=== PATIENT | male | born 1980 | race Hispanic/Latino ===

== ENCOUNTER 2021-12-05 11:10 | Inpatient (IN) | payer MEDICAID, SELFPAY ==
--- NOTE | ~2021-12-05 | US_ITS ---
EXAMINATION: US abdomen limited DATE: 12/05/2021 16:26 INDICATION: Abdominal pain. TECHNIQUE: Multiple grayscale and Doppler ultrasound images of the abdomen were obtained. COMPARISON: CT abdomen and pelvis 12/05/2021 FINDINGS: The pancreas is obscured by bowel gas. The liver is normal without focal lesion. The gallbl adder is distended and contains sludge. No gallstones or gallbladder wall thickening. There was no so nographic Pearl sign. The common duct is normal and measures 5 mm. IMPRESSION: 1. Gallbladder sludge. Gallbladder distention is likely secondary to fasting. No specific evidence of acute cholecystitis. Reviewed, dictated and finalized at location A. IMPRESSION: 1. Gallbladder sludge. Gallbladder distention is likely secondary to fasting. N o specific evidence of acute cholecystitis.
--- NOTE | ~2021-12-05 | CT_ITS ---
EXAMINATION: CT abdomen pelvis w con DATE: 12/05/2021 13:41 INDICATION: Abdominal pain. TECHNIQUE: Computed tomography (CT) of the abdomen and pelvis was performed with 100 mL Omnipaque 350 intravenous contrast. Automated exposure control and iterative reconstruction technique were employe d. The dose-length product was 351.40 mGy-cm. COMPARISON: None. FINDINGS: The visualized portions of the lung bases demonstrate mild atelectasis. No pleural effusion . The heart size is normal. No pericardial effusion. The liver is normal. The gallbladder is distende d. The spleen is normal. There is fat stranding around the pancreas. The pancreatic duct is mildly di lated to 3 mm in the tail of the pancreas. The adrenal glands are normal. There is a 5 mm cyst in rig ht kidney. Left kidney is normal. The prostate is mildly enlarged. There are no dilated loops of fabián l. The appendix is normal. There are no pathologically enlarged lymph nodes. There is no free intrape ritoneal fluid. There is mild thoracolumbar spondylosis. IMPRESSION: 1. Abnormal pancreas, consistent with acute and/or chronic pancreatitis. 2. Distended gallbladder, which may be secondary to fasting or less likely acute cholecystitis. Reviewed, dictated and finalized at location A. IMPRESSION: 1. Abnormal pancreas, consistent with acute and/or chronic pancreatitis. 2. Distended gallbladder, which may be secondary to fasting or less likely acut e cholecystitis.
[2021-12-05 11:42] VITALS: BP 160/114; PULSE 110; RESP 18; TEMP 36.7; O2SAT 98
[2021-12-05 12:13] LABS: Basophils Percent Auto 0.3 % (0.2-1.2); Eosinophils Percent Auto 0.1 % (0-4.4); Hematocrit 44.6 % (42.0-52.0); Hemoglobin 15.6 g/dL (14.0-18.0); Immature Granulocyte Absolute 0.05 K/mm3 (0.00-0.031); Immature Granulocyte Percent A 0.4 % (0-0.5); Lymphocytes Absolute Auto 2.03 K/mm3 (0.9-3.2); Lymphocytes Percent Auto 14.9 % (18.3-44.2); Mean Corpuscular Hemoglobin 29.8 pg (26-34); Mean Corpuscular Volume 85.1 fl (80-100); Mean Platelet Volume 8.8 fl (7.4-10.4); Monocytes Percent Auto 7.5 % (2.6-8.5); Neutrophils Absolute Auto 10.5 K/mm3 (1.3-6.7); Neutrophils Percent Auto 76.8 % (45.5-73.1); Platelet Count Result 429 k/mm3 (150-375); Red Blood Count 5.24 M/mm3 (4.6-6.20); Red Cell Distribution Width 12.4 % (11.5-14.5); White Blood Count 13.6 K/mm3 (4.5-10.0)
[2021-12-05 12:26] LABS: Alanine Aminotransferase 40 U/L (6-50); Albumin Level 4.9 g/dL (3.5-5.1); Alkaline Phosphatase 165 U/L (38-126); Anion Gap 9 mmol/L (8-16); Aspartate Amino Transferase 33 U/L (17-59); Bilirubin,Total 1.6 mg/dL (0.2-1.3); Blood Urea Nitrogen 8 mg/dL (9-20); Calcium 9.3 mg/dL (8.4-10.2); Carbon Dioxide 25 mmol/L (22-30); Chloride 92 mmol/L (98-107); Estimated CRCL calculation 96 ml/min; Estimated Glomerular Filt Rate > 60; Glucose 129 mg/dL (65-110); Lipase 226 U/L (23-300); Potassium 3.4 mmol/L (3.4-5.0); Sodium 126 mmol/L (137-145)
[2021-12-05 12:34] LABS: Appearance Urine Slightly Cloudy (Clear); Bilirubin Urine Negative (Negative); Glucose Urine UA Negative (Negative); Ketones Urine Negative (Negative); Leukocyte Esterase Ur Negative LEU/UL (Negative); Nitrate Urine Negative (Negative); Protein Urine 2+ mg/dL (Negative); Specific Grav Ur >= 1.030 (1.001-1.035); Urobilinogen Urine 0.2 mg/dL (<2.0)
[2021-12-05 12:35] LABS: Add Urine Microscopic? YES; Blood Urine Trace-Intact (Negative); Color Urine Dark Yellow (Yellow)
[2021-12-05 12:38] LABS: Mucus Urine Moderate /lpf; WBC Urine 0-3 /hpf
--- NOTE | 2021-12-05 13:13 | ED.ABDPAIN ---
HPI - Abdominal Pain General Chief Complaint: Abdominal Pain Stated Complaint: RUQ abdominal pain Time Seen by Provider: 12/05/21 13:13 Source: patient and RN notes reviewed Mode of arrival: ambulatory Limitations: no limitations History of Present Illness HPI narrative: 41 years old male came to the emergency room by private car complaining of abdominal pain mainly on the left side started last night, has been constant. Associated with nausea and frequent vomiting. Patient denies any fever or chills or having similar symptoms. No history of abdominal surgery. Patient does not smoke and drinks occasionally. He denies any urinary symptoms, diarrhea or constipation. Related Data Allergies Allergy/AdvReac Type Severity Reaction Status Date / Time No Known Allergies Allergy Verified 12/05/21 13:25 Review of Systems Review of Systems: All systems reviewed & are unremarkable except as noted in HPI and below Exam Narrative: General appearance: Well-developed, well-nourished Skin: Normal color Head: Normocephalic, nontraumatic Eyes: Clear conjunctiva ENT: Oropharynx normal, ears normal, nose normal Neck: Supple, nontender Chest and respiratory: Airway patent, no respiratory distress, no accessory muscle use Heart: Regular rate/rhythm Abdomen: Soft, diffuse tenderness left upper quadrant. No organomegaly, quiet bowel sounds Vascular: Normal peripheral pulses, normal capillary refill. Musculoskeletal: Normal range of motion, nontender back Neurologic: Alert and oriented ?3, GROUP RESERVATIONS COORDINATOR is normal as tested, no gross motor deficit Course Vital Signs Vital signs: Vital Signs Temperature 36.7 C 12/05/21 11:42 Pulse Rate 110 H 12/05/21 11:42 Respiratory Rate 18 12/05/21 11:42 Blood Pressure 160/114 H 12/05/21 11:42 Pulse Oximetry 98 12/05/21 11:42 Oxygen Delivery Room Air 12/05/21 11:42 Temperature 36.7 C 12/05/21 11:42 Pulse Rate 110 H 12/05/21 11:42 Respiratory Rate 18 12/05/21 11:42 Blood Pressure 160/114 H 12/05/21 11:42 Pulse Oximetry 98 12/05/21 11:42 Oxygen Delivery Room Air 12/05/21 11:42 MDM - Abdominal Pain Lab Data Result diagrams: 12/05/21 11:51 12/05/21 11:51 Labs: Lab Results 12/05/21 12/05/21 12/05/21 Range/Units 11:51 11:51 12:11 WBC 13.6 H (4.5-10.0) K/mm3 RBC 5.24 (4.6-6.20) M/mm3 Hgb 15.6 (14.0-18.0) g/dL Hct 44.6 (42.0-52.0) % MCV 85.1 (80-100) fl MCH 29.8 (26-34) pg MCHC 35.0 (32-36) g/dl RDW 12.4 (11.5-14.5) % Plt Count 429 H (150-375) k/mm3 MPV 8.8 (7.4-10.4) fl Immature Gran % (Auto) 0.4 (0-0.5) % Neut % (Auto) 76.8 H (45.5-73.1) % Lymph % (Auto) 14.9 L (18.3-44.2) % [place] % (Auto) 7.5 (2.6-8.5) % Eos % (Auto) 0.1 (0-4.4) % Baso % (Auto) 0.3 (0.2-1.2) % Lymph # (Auto) 2.03 (0.9-3.2) K/mm3 [place] # (Auto) 1.0 H (0.1-0.6) K/mm3 Eos # (Auto) 0.0 (0-0.3) K/mm3 Baso # (Auto) 0.0 (0.0-0.1) K/mm3 Abs Immat Gran (auto) 0.05 H (0.00-0.031) K/mm3 Absolute Neuts (auto) 10.5 H (1.3-6.7) K/mm3 Absolute Nucleated RBC 0.0 (0.0-0.012) K/mm3 Nucleated RBC % 0.0 (0.0-0.2) % Sodium 126 L (137-145) mmol/L Potassium 3.4 (3.4-5.0) mmol/L Chloride 92 L (98-107) mmol/L Carbon Dioxide 25 (22-30) mmol/L Anion Gap 9 (8-16) mmol/L BUN 8 L (9-20) mg/dL Creatinine 0.70 (0.7-1.3) mg/dL Estim Creat Clear Calc 96 ml/min Estimated GFR > 60 (59 - ) Glucose 129 H (65-110) mg/dL Calcium 9.3 (8.4-10.2) mg/dL Total Bilirubin 1.6 H (0.2-1.3) mg/dL AST 33 (17-59) U/L ALT 40 (6-50) U/L A
[2021-12-05] MEDS: ONDANSETRON INJ 4 MG/2 ML VIAL IV PUSH ×2 (13:27→17:29)
[2021-12-05] MEDS: HYDROmorphone HCL INJ (*CRX) 1 MG/ML SYR 0.5 MG IV PUSH ×4 (13:27→20:38)
[2021-12-05] MEDS: SODIUM CHLORIDE 0.9% IV 1,000 ML 999 ML IV CONT (13:27)
[2021-12-05 15:25] VITALS: BP 148/86; PULSE 86; RESP 16; O2SAT 99
[2021-12-05 15:58] LABS: Amylase 102 U/L (30-110)
[2021-12-05 16:40] VITALS: BP 140/92; PULSE 98; RESP 16; TEMP 36.6; O2SAT 96
[2021-12-05 17:09] VITALS: BMI 30.2
--- NOTE | 2021-12-05 17:14 | ADMGEN ---
This patient, Brooks Riggs, was admitted to Medical Room 340-01. Patient/family oriented to hospital policies and general routines including ID bracelet, bed and alarms, visiting hours, pain management, procedures, bathroom and other care routines, personal items, smoking policy, room service/diet, and visiting hours. Information on how to activate the Rapid Response Team has been discussed. Patient/Family are encouraged to report perceived risks to care and to ask questions if they do not understand what they are told or what they should do.
[2021-12-05] MEDS: SODIUM CHLORIDE 0.9% IV 1,000 ML 250 ML IV CONT ×2 (17:29→20:43)
--- NOTE | 2021-12-05 20:00 | PM.IMHP ---
H&P: HPI History of Present Illness Date/Time: 12/05/21 20:00 Chief Complaint: Abdominal pain. Narrative: This is a pleasant 41-year-old male, primarily Mongolian-speaking, presented to the emergency department via private vehicle from home for evaluation of abdominal pain. He reports a pretty sudden onset of upper abdominal pain last evening which seems to be more situated in the epigastric and left upper quadrant. The pain has been pretty consistent since the onset however seems to come and go in waves of intensity. He has difficulties describing the pain but does indicate that frequently it feels like a severe, squeezing pain. It does not radiate and he has not noticed any significant aggravating or alleviating factors. Ibuprofen has not helped much. Associated symptoms include nausea, multiple episodes of emesis, and sweats. Aside from elevated blood pressures, his vital signs were stable on arrival to the ER. Pertinent labs include a white blood cell count of 13.6, sodium 126, potassium 3.4, chloride 92, carbon dioxide 25, total bilirubin 1.6, AST 33, ALT 40, alkaline phosphatase 165, lipase 226. CT of the abdomen and pelvis showed findings consistent with acute and/or chronic pancreatitis and a distended gallbladder. Subsequent abdominal ultrasound showed gallbladder sludge and distension though no specific evidence of acute cholecystitis. He is being admitted in this setting for further treatment and evaluation. He had a similar episode several years ago, perhaps pancreatitis but he cannot recall. He had 3 shots of Tequila the night before his symptoms started and he is wondering if that may be the precipitating etiology; he is not a regular drinker. At the time my evaluation he is feeling a bit better after receiving dilaudid but he has pretty significant pain. He denies fever, chest pain, shortness of breath, hematemesis, diarrhea, steatorrhea, melena, and hematochezia. He also denies abdominal distension, bloating, belching, epigastric pain, and history of ulcers. Review of Systems Review of Systems: Twelve systems were reviewed and are negative except for as per HPI. [facility] Past Medical History Medical History (Updated 12/05/21 @ 22:30 by Kiki Daniels PA-C) Pancreatitis Surgical History Surgical History (Updated 12/05/21 @ 22:27 by Kiki Daniels PA-C) History of appendectomy Family History Family History Grandparent Prostate carcinoma Social History Social History (Updated 12/05/21 @ 22:28 by Kiki Daniels PA-C) Social History: Surrogate medical decision maker: Ellie Riggs, spouse. Code status: Full code. Smoking status: Never smoker Alcohol intake: current Drinks per week: 3 Substance use: never Additional living arrangements comments: The patient lives with his family in [place]. 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 Spiritual care concerns: No Meds Home Medications and Allergies Home Medications Medication Instructions Recorded Confirmed Type No Home Medications 12/05/21 12/05/21 History Allergies Allergy/AdvReac Type Severity Reaction Status Date / Time No Known Allergies Allergy Verified 12/05/21 13:25 Vital Signs Vital Signs - 24 hr 12/05/21 11:42 12/05/21 15:25 12/05/21 16:40 Temperature 98.1 F Pulse Rate 110 H 86 Respiratory Rate 18 16 Blood Pressure 160/114 H 148/86 H Pulse Oximetry 98 99 Oxygen Delivery Room Air Room Air 12/05/21 16:40 12/05/21 21:31 Temperature 98 F 98.0 F Pulse Rate 98 97 Respiratory Rate 16 16 Blood Pressure 140/92 H 172/100 H Pulse Oximetry 96 98 Oxygen Delivery Exam Narrative: General: Well-developed male appearing in moderate pain sitting up in bed. Weight: 70.2 kg. BMI: 30.2. HEENT: Normocephalic, atraumatic. PERRL, EOMI. Sclerae anicteric. Tacky mucous membranes. Neck: Supple. Respiratory: Lungs are cl
[2021-12-05 20:35] LABS: Anion Gap 14 mmol/L (8-16); Blood Urea Nitrogen 9 mg/dL (9-20); Calcium 8.6 mg/dL (8.4-10.2); Carbon Dioxide 23 mmol/L (22-30); Chloride 95 mmol/L (98-107); Estimated CRCL calculation 111 ml/min; Estimated Glomerular Filt Rate > 60; Glucose 120 mg/dL (65-110); Potassium 3.3 mmol/L (3.4-5.0); Sodium 132 mmol/L (137-145)
[2021-12-05 21:31] VITALS: BP 172/100; PULSE 97; RESP 16; TEMP 36.7; O2SAT 98
[2021-12-05 22:08] LABS: Thyroid Stimulating Hormone Reflex 0.834 uIU/mL (0.465-4.68)
[2021-12-05] MEDS: KCL 20 MEQ/SW 100 ML 100 ML 50 MEQ IVPB (23:26)
[2021-12-05] MEDS: HYDROmorphone HCL INJ (*CRX) 1 MG/ML SYR IV PUSH (23:54)
[2021-12-06 00:03] LABS: Sodium Urine Random 107 meq/L
[2021-12-06] MEDS: SODIUM CHLORIDE 0.9% IV 1,000 ML 150 ML IV CONT ×3 (03:10→19:46)
[2021-12-06 04:44] LABS: Hematocrit 38.3 % (42.0-52.0); Hemoglobin 13.4 g/dL (14.0-18.0); Mean Corpuscular Hemoglobin 30.5 pg (26-34); Mean Corpuscular Volume 87.2 fl (80-100); Mean Platelet Volume 8.9 fl (7.4-10.4); Platelet Count Result 345 k/mm3 (150-375); Red Blood Count 4.39 M/mm3 (4.6-6.20); Red Cell Distribution Width 12.6 % (11.5-14.5); White Blood Count 9.4 K/mm3 (4.5-10.0)
[2021-12-06 04:56] LABS: Alanine Aminotransferase 26 U/L (6-50); Albumin Level 3.7 g/dL (3.5-5.1); Alkaline Phosphatase 117 U/L (38-126); Anion Gap 10 mmol/L (8-16); Aspartate Amino Transferase 48 U/L (17-59); Bilirubin,Total 1.1 mg/dL (0.2-1.3); Blood Urea Nitrogen 8 mg/dL (9-20); Calcium 8.8 mg/dL (8.4-10.2); Carbon Dioxide 25 mmol/L (22-30); Chloride 99 mmol/L (98-107); Estimated CRCL calculation 111 ml/min; Estimated Glomerular Filt Rate > 60; Glucose 105 mg/dL (65-110); Lipase 54 U/L (23-300); Potassium 3.5 mmol/L (3.4-5.0); Sodium 134 mmol/L (137-145); Triglycerides 440 mg/dL (<150)
[2021-12-06 05:54] LABS: Hemoglobin A1C 5.5 % (<5.7)
[2021-12-06 06:00] VITALS: BP 146/90; PULSE 88; RESP 16; TEMP 36.9; O2SAT 98
[2021-12-06] MEDS: HYDROmorphone HCL INJ (*CRX) 1 MG/ML SYR IV PUSH ×5 (07:57→22:45)
--- NOTE | 2021-12-06 11:48 | PM.IMPN ---
Progress Note: A&P Assessment and Plan (1) Pancreatitis: Code(s): K85.90 - Acute pancreatitis without necrosis or infection, unspecified Status: Acute Assessment and Plan: Triglyceride was 400. Continue IV fluids, may advance to clear liquid diet if his abdominal pain improves. Continue pain control. Repeat labs in morning (2) Dehydration: Code(s): E86.0 - Dehydration Status: Acute Assessment and Plan: He is being aggressively hydrated. (3) Hyponatremia: Code(s): E87.1 - Hypo-osmolality and hyponatremia Status: Acute Assessment and Plan: Monitor. No symptoms. (4) Hyperglycemia: Code(s): R73.9 - Hyperglycemia, unspecified Status: Acute Assessment and Plan: Check fasting glucose and A1c. (5) Elevated blood pressure reading: Code(s): R03.0 - Elevated blood-pressure reading, without diagnosis of hypertension Status: Acute Assessment and Plan: Likely due to pain from pancreatitis. Continue to monitor and initiate antihypertensives if indicated. Subjective Date/time seen: 12/06/21 11:48 Patient reports pain is much better. No new complaints. Exam Narrative: General: Well-developed male appearing in moderate pain sitting up in bed. Weight: 70.2 kg. BMI: 30.2. HEENT: Normocephalic, atraumatic. PERRL, EOMI. Sclerae anicteric. Tacky mucous membranes. Neck: Supple. Respiratory: Lungs are clear to auscultation bilaterally. Cardiovascular: Regular rate and rhythm with S1-S2. Gastrointestinal: Abdomen is nondistended with positive bowel sounds. He is tender to palpation in the epigastrium and left upper quadrant. No guarding or rebound tenderness. Skin: Warm and dry. No rash or lesions on limited exam. Extremities: No cyanosis, clubbing, or edema. Radial and pedal pulses intact. Neurological: Alert. Cranial nerves 2-12 are grossly intact. No gross focal deficits to casual conversation. Psychiatric: Pleasant and cooperative with normal mood and affect. Judgment and insight intact. Objective Data Vital Signs Vital Signs: Vital Signs - 24 hr 12/05/21 15:25 12/05/21 16:40 12/05/21 16:40 Temperature 98 F Pulse Rate 86 98 Respiratory Rate 16 16 Blood Pressure 148/86 H 140/92 H Pulse Oximetry 99 96 Oxygen Delivery Room Air 12/05/21 21:31 12/06/21 06:00 12/06/21 08:00 Temperature 98.0 F 98.4 F Pulse Rate 97 88 Respiratory Rate 16 16 Blood Pressure 172/100 H 146/90 H Pulse Oximetry 98 98 Oxygen Delivery Room Air Intake/Output Intake/Output: Intake & Output 12/03/21 12/04/21 12/05/21 12/06/21 23:59 23:59 23:59 23:59 Intake Total 1999 2449 Output Total 0 200 Balance 1999 2250 Meds/Results Medications: Active Medications Generic Name Dose Route Start Last Admin Trade Name Freq PRN Reason Stop Dose Admin Hydromorphone HCl 1 mg 12/05/21 22:18 12/06/21 11:30 Hydromorphone Hcl Inj (*Crx) 1 Mg/Ml Syr IV PUSH 1 mg Q3H PRN Administration Pain Rated 7-10 Sodium Chloride 1,000 mls @ 150 mls/hr 12/05/21 15:20 12/06/21 11:29 Normal Saline Iv IV CONT 150 mls/hr .Q6H40M DEBBIE Administration Acetaminophen 1,000 mg in 100 mls @ 400 mls/hr 12/05/21 20:11 12/06/21 04:58 Ofirmev 1,000 Mg Ivpb IVPB 12/06/21 15:19 Infused Q6H PRN Infusion Pain (1-6) Or Fever Ondansetron HCl 4 mg 12/05/21 15:20 12/05/21 17:29 Ondansetron Inj 4 Mg/2 Ml Vial IV PUSH 4 mg Q4H PRN Administration Nausea Radiology Results: ITS Impressions Abdomen/Pelvis CT 12/05/21 13:43 IMPRESSION: 1. Abnormal pancreas, consistent with acute and/or chronic pancreatitis. 2. Distended gallbladder, which may be secondary to fasting or less likely acute cholecystitis. Abdomen Ultrasound 12/05/21 16:27 IMPRESSION: 1. Gallbladder sludge. Gallbladder distention is likely secondary to fasting. No specific evidence of acute cholecystitis.
[2021-12-06 14:00] VITALS: BP 139/92; PULSE 88; RESP 20; TEMP 36.8; O2SAT 97
[2021-12-06 18:57] LABS: Anion Gap 12 mmol/L (8-16); Blood Urea Nitrogen 8 mg/dL (9-20); Calcium 8.5 mg/dL (8.4-10.2); Carbon Dioxide 22 mmol/L (22-30); Chloride 99 mmol/L (98-107); Estimated CRCL calculation 112 ml/min; Estimated Glomerular Filt Rate > 60; Glucose 138 mg/dL (65-110); Potassium 3.2 mmol/L (3.4-5.0); Sodium 133 mmol/L (137-145)
[2021-12-06 21:34] VITALS: BP 150/98; PULSE 96; RESP 16; TEMP 36.9; O2SAT 98
[2021-12-07] MEDS: HYDROmorphone HCL INJ (*CRX) 1 MG/ML SYR IV PUSH ×7 (01:41→22:29)
[2021-12-07] MEDS: SODIUM CHLORIDE 0.9% IV 1,000 ML 150 ML IV CONT ×4 (01:42→21:31)
[2021-12-07 05:52] VITALS: BP 155/102; PULSE 85; RESP 16; TEMP 36.6; O2SAT 96
[2021-12-07 05:53] LABS: Anion Gap 10 mmol/L (8-16); Blood Urea Nitrogen 8 mg/dL (9-20); Calcium 8.7 mg/dL (8.4-10.2); Carbon Dioxide 26 mmol/L (22-30); Chloride 100 mmol/L (98-107); Estimated CRCL calculation 112 ml/min; Estimated Glomerular Filt Rate > 60; Glucose 103 mg/dL (65-110); Hematocrit 37.8 % (42.0-52.0); Hemoglobin 12.9 g/dL (14.0-18.0); Lipase 16 U/L (23-300); Mean Corpuscular HGB Conc 34.1 g/dl (32-36); Mean Corpuscular Hemoglobin 30.2 pg (26-34); Mean Corpuscular Volume 88.5 fl (80-100); Platelet Count Result 356 k/mm3 (150-375); Potassium 3.3 mmol/L (3.4-5.0); Red Blood Count 4.27 M/mm3 (4.6-6.20); Red Cell Distribution Width 12.6 % (11.5-14.5); Sodium 136 mmol/L (137-145); White Blood Count 7.8 K/mm3 (4.5-10.0)
[2021-12-07] MEDS: hydrALAZINE HCL 20 MG/ML VIAL 10 MG IV PUSH ×2 (07:56→16:12)
[2021-12-07 09:43] VITALS: BP 126/85
--- NOTE | 2021-12-07 11:45 | PM.IMPN ---
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 Lipase was 16 GI consulted (3) Dehydration: Code(s): E86.0 - Dehydration Status: Acute Assessment and Plan: Continue fluids BUN/Cr are stable at 8/0.60 Continue to trend (4) Hyponatremia: Code(s): E87.1 - Hypo-osmolality and hyponatremia Status: Acute Assessment and Plan: Stable at 136 Trend labs Adjust therapy as indicated (5) Hyperglycemia: Code(s): R73.9 - Hyperglycemia, unspecified Status: Acute Assessment and Plan: Glucose 103 A1c 5.5 Seems stable (6) Elevated blood pressure reading: Code(s): R03.0 - Elevated blood-pressure reading, without diagnosis of hypertension Status: Acute Assessment and Plan: Blood pressure 126/85 currently however was 155/102 this morning No home medications noted Continue to trend blood pressure Most likely due to pain Trend blood pressure Adjust therapy as indicated Time Spent With Patient Time with patient: Greater than 35 minutes Subjective Date/time seen: 12/07/21 11:45 Interval history: 12/07/21 1145 Patient states that he is still having a lot of pain. His pain is a 6/10. He denies any nausea or vomiting chest pain, shortness is breath common weakness or fatigue. He did state that his pain was in the left lower quadrant. Right upper quadrant ultrasound did show gallbladder sludge. Will have GI come to see the patient. Patient was also concerned about his blood pressure however I feel it is pain related as he seems to be very guarding and tender. 12/06/21? 11:48 Patient reports pain is much better.? No new complaints. 12/05/21? 20:00 This is a pleasant 41-year-old male, primarily Qatari-speaking, presented to the emergency department via private vehicle from home for evaluation of abdominal pain. He reports a pretty sudden onset of upper abdominal pain last evening which seems to be more situated in the epigastric and left upper quadrant. The pain has been pretty consistent since the onset however seems to come and go in waves of intensity. He has difficulties describing the pain but does indicate that frequently it feels like a severe, squeezing pain. It does not radiate and he has not noticed any significant aggravating or alleviating factors. Ibuprofen has not helped much. Associated symptoms include nausea, multiple episodes of emesis, and sweats. Aside from elevated blood pressures, his vital signs were stable on arrival to the ER. Pertinent labs include a white blood cell count of 13.6, sodium 126, potassium 3.4, chloride 92, carbon dioxide 25, total bilirubin 1.6, AST 33, ALT 40, alkaline phosphatase 165, lipase 226. CT of the abdomen and pelvis showed findings consistent with acute and/or chronic pancreatitis and a distended gallbladder. Subsequent abdominal ultrasound showed gallbladder sludge and distension though no specific evidence of acute cholecystitis. He is being admitted in this setting for further treatment and evaluation. He had a similar episode several years ago, perhaps pancreatitis but he cannot recall. He had 3 shots of Tequila the night before his symptoms started and he is wondering if that may be the precipitating etiol
--- NOTE | 2021-12-07 11:45 | P.PNIM_ITS ---
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 * Lipase was 16 * GI consulted (3) Dehydration: Code(s): E86.0 - Dehydration Status: Acute Assessment and Plan: * Continue fluids * BUN/Cr are stable at 8/0.60 * Continue to trend (4) Hyponatremia: Code(s): E87.1 - Hypo-osmolality and hyponatremia Status: Acute Assessment and Plan: * Stable at 136 * Trend labs * Adjust therapy as indicated (5) Hyperglycemia: Code(s): R73.9 - Hyperglycemia, unspecified Status: Acute Assessment and Plan: * Glucose 103 * A1c 5.5 * Seems stable (6) Elevated blood pressure reading: Code(s): R03.0 - Elevated blood-pressure reading, without diagnosis of hypertension Status: Acute Assessment and Plan: * Blood pressure 126/85 currently however was 155/102 this morning * No home medications noted * Continue to trend blood pressure * Most likely due to pain * Trend blood pressure * Adjust therapy as indicated Time Spent With Patient Time with patient: Greater than 35 minutes Subjective Date/time seen: 12/07/21 11:45 Interval history: 12/07/21 1145 Patient states that he is still having a lot of pain. His pain is a 6/10. He denies any nausea or vomiting chest pain, shortness is breath common weakness or fatigue. He did state that his pain was in the left lower quadrant. Right upper quadrant ultrasound did show gallbladder sludge. Will have GI come to see the patient. Patient was also concerned about his blood pressure however I feel it is pain related as he seems to be very guarding and tender. 12/06/21? 11:48 Patient reports pain is much better.? No new complaints. 12/05/21? 20:00 This is a pleasant 41-year-old male, primarily Citizen [place]-speaking, presented to the emergency department via private vehicle from home for evaluation of abdominal pain. He reports a pretty sudden onset of upper abdominal pain last evening which seems to be more situated in the epigastric and left upper quadrant. The pain has been pretty consistent since the onset however seems to come and go in waves of intensity. He has difficulties describing the pain but does indicate that frequently it feels like a severe, squeezing pain. It does not radiate and he has not noticed any significant aggravating or alleviating factors. Ibuprofen has not helped much. Associated symptoms include nausea, multiple episodes of emesis, and sweats. Aside from elevated blood pressures, his vital signs were stable on arrival to the ER. Pertinent labs include a white blood cell count of 13.6, sodium 126, potassium 3.4, chloride 92, carbon dioxide 25, total bilirubin 1.6, AST 33, ALT 40, alkaline phosphatase 165, lipase 226. CT of the abdomen and pelvis showed findings con
--- NOTE | 2021-12-07 12:37 | WPDGICN ---
Assessment and Plan Assessment and plan (1) Acute on chronic pancreatitis: Code(s): K85.90 - Acute pancreatitis without necrosis or infection, unspecified; K86.1 - Other chronic pancreatitis Status: Acute Assessment and Plan: he is already feeling better most likely alcohol related- will need to stop drinking altogether normal liver enzymes ok to advance diet, if no much of pain or nausea probably home tomorrow he can follow-up in office in 4-6 weeks, consider egd as outpatient (2) Alcohol abuse: Code(s): F10.10 - Alcohol abuse, uncomplicated Status: Acute Assessment and Plan: needs to stop drinking (3) Hyponatremia: Code(s): E87.1 - Hypo-osmolality and hyponatremia Status: Acute Assessment and Plan: here with dehydration monitor (4) Dehydration: Code(s): E86.0 - Dehydration Status: Acute Assessment and Plan: treated GI Consult Note Consult date/time: 12/07/21 12:37 Reason for consult: acute on chronic pancreatitis HPI: Brooks Riggs is a 41 year old male [place]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 He says that about 3 years ago diagnosed with first episode of pancreatitis, was told that probably alcohol related (he was drinking heavily on weekends and since teenager) but slowed down on his drinking after diagnosis of pancreatitis. This will be his third time in the hospital for pancreatitis. He says that have about 12 beers then started having upper abdominal discomfort, moderate intensity like previous episode also nausea and vomiting. Labs showed na 132, low potassium, normal liver enzymes and lipase. CT scan reviewed and showed abnormal pancreas, consistent with acute and/or chronic pancreatitis, distended gallbladder, which may be secondary to fasting or less likely acute cholecystitis. Never had scopes. He is already feeling better and would like to eat, he is hoping to go home soon. Review of Systems Constitutional: Constitutional: Denies chills Eyes: Eyes: Denies blurry vision ENT: Reports Normal hearing present Cardiovascular: Cardiovascular: Denies chest pain Respiratory: Respiratory: Denies cough Gastrointestinal: Gastrointestinal: Reports nausea and Reports vomiting Genitourinary: Genitourinary: Denies hematuria Musculoskeletal: Musculoskeletal: Denies back pain Integumentary/Breasts: Skin/Breast: Denies dry skin Neurologic: Denies Abnormal speech present Psychiatric: Psychiatric: Denies behavioral changes [facility] Past Medical History Medical History (Updated 12/07/21 @ 12:44 by Evan Escobar MD) Acute on chronic pancreatitis Alcohol abuse Pancreatitis Surgical History Surgical History (Updated 12/05/21 @ 22:27 by Kiki Daniels PA-C) History of appendectomy Family History Family History Grandparent Prostate carcinoma Social History Social History (Updated 12/05/21 @ 22:28 by Kiki Daniels PA-C) Social History: Surrogate medical decision maker: Ellie Riggs, spouse. Code status: Full code. Smoking status: Never smoker Alcohol intake: current Drinks per week: 3 Substance use: never Additional living arrangements comments: The patient lives with his family in [place]. 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 Spiritual care concerns: No Meds Home Medications and Allergies Home Medications Medication Instructions Recorded Confirmed Type No Home Medications 12/05/21 12/05/21 History Allergies Allergy/AdvReac Type Severity Reaction Status Date / Time No Known Allergies Allergy Verified 12/05/21 13:25 Vital Signs Vital Signs - 24 hr 12/06/21 14:00 12/06/21 21:34 12/07/21 05:52 Temperature 98.2 F 98.4 F 97.9 F Pulse Rate 88 96 85 Respiratory Rate 20 16 16 Blood Pressure 139/92 H 150/98 H 155/102 H Pulse Oximetry 97 98 96 Oxygen Delivery
[2021-12-07 14:00] VITALS: BP 160/110; PULSE 96; RESP 16; TEMP 36.4; O2SAT 98
[2021-12-07] MEDS: HYDROcodone/acetaminophen (*CRX) 5-325 MG TABLET 1 TAB PO (17:44)
[2021-12-07 19:55] VITALS: O2SAT 98
[2021-12-07 21:48] VITALS: BP 155/88; PULSE 118; RESP 18; TEMP 36.6; O2SAT 98
[2021-12-08] MEDS: HYDROmorphone HCL INJ (*CRX) 1 MG/ML SYR IV PUSH ×2 (02:23→05:42)
[2021-12-08] MEDS: SODIUM CHLORIDE 0.9% IV 1,000 ML 150 ML IV CONT ×2 (04:17→11:52)
[2021-12-08 05:39] VITALS: BP 145/100; PULSE 78; RESP 16; TEMP 36.6; O2SAT 99
[2021-12-08 06:14] LABS: Basophils Percent Auto 0.5 % (0.2-1.2); Eosinophils Absolute Auto 0.2 K/mm3 (0-0.3); Eosinophils Percent Auto 2.1 % (0-4.4); Hematocrit 37.8 % (42.0-52.0); Hemoglobin 12.9 g/dL (14.0-18.0); Immature Granulocyte Absolute 0.02 K/mm3 (0.00-0.031); Immature Granulocyte Percent A 0.2 % (0-0.5); Lymphocytes Percent Auto 24.1 % (18.3-44.2); Mean Corpuscular HGB Conc 34.1 g/dl (32-36); Mean Corpuscular Hemoglobin 30.1 pg (26-34); Mean Corpuscular Volume 88.3 fl (80-100); Monocytes Absolute Auto 0.7 K/mm3 (0.1-0.6); Monocytes Percent Auto 8.4 % (2.6-8.5); Neutrophils Absolute Auto 5.7 K/mm3 (1.3-6.7); Neutrophils Percent Auto 64.7 % (45.5-73.1); Platelet Count Result 391 k/mm3 (150-375); Red Blood Count 4.28 M/mm3 (4.6-6.20); Red Cell Distribution Width 12.7 % (11.5-14.5); White Blood Count 8.7 K/mm3 (4.5-10.0)
[2021-12-08 06:27] LABS: Alanine Aminotransferase 18 U/L (6-50); Albumin Level 3.8 g/dL (3.5-5.1); Alkaline Phosphatase 106 U/L (38-126); Anion Gap 12 mmol/L (8-16); Aspartate Amino Transferase 23 U/L (17-59); Bilirubin,Total 0.4 mg/dL (0.2-1.3); Blood Urea Nitrogen 5 mg/dL (9-20); Calcium 8.8 mg/dL (8.4-10.2); Carbon Dioxide 26 mmol/L (22-30); Chloride 99 mmol/L (98-107); Estimated CRCL calculation 110 ml/min; Estimated Glomerular Filt Rate > 60; Glucose 94 mg/dL (65-110); Potassium 3.2 mmol/L (3.4-5.0); Sodium 137 mmol/L (137-145)
--- NOTE | 2021-12-08 07:45 | P.DS_ITS ---
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 * tolerating diet * follow up with GI in 4-6 weeks for EGD. (2) Pancreatitis: Code(s): K85.90 - Acute pancreatitis without necrosis or infection, unspecified Status: Acute Assessment and Plan: * Abdominal CT shows a normal pancreas consistent with acute on chronic pancreatitis, distended gallbladder * Abdominal ultrasound shows gallbladder sludge and distension * Continue IV fluids * Clear liquid diet * Continue pain control. * Lipase was 16 * GI consulted * GI wants to follow up in 4-6 weeks as outpatient. (3) Dehydration: Code(s): E86.0 - Dehydration Status: Resolved Assessment and Plan: * Continue fluids * BUN/Cr are stable at 8/0.60 * Continue to trend * Resolved and tolerating a low fat/low residue diet. (4) Hyponatremia: Code(s): E87.1 - Hypo-osmolality and hyponatremia Status: Resolved Assessment and Plan: * Resolved today with sodium of 147. (5) Hyperglycemia: Code(s): R73.9 - Hyperglycemia, unspecified Status: Resolved Assessment and Plan: * Glucose 94 * A1c 5.5 * Seems stable (6) Elevated blood pressure reading: Code(s): R03.0 - Elevated blood-pressure reading, without diagnosis of hypertension Status: Acute Assessment and Plan: * Blood pressure 126/85 currently however was 155/102 this morning * No home medications noted * Continue to trend blood pressure * Pt. has had intermittent elevated blood pressures with diastolic in the 90s- 100s and persisting. Will initiate Losartan 25 mg po. * Trend blood pressure * Adjust therapy as indicated DS: Summary Hospital Course Reason for hospitalization: Abdominal Pain Hospital Course: This 41 year old male patient with significant PMH of Pancreatitis that is chronic, presented to the ER on 12/05/2021 with complaints of haivng abdominal pain after drinking three shots of Tequila the night before. He described it as a squeezing pain and ER workup was significant for a WBC count of 13.6, Sodium of 126, Total bilirubin of 1.6 and lipase of 226. CT of abdomen and pelvis was consistent with sludge found in the Gall Bladder and also with findings of Chronic Pancreatitis. Subsequent Abdominal US was consistent with gall bladder sludge without acute cholecystitis. He has had a favorable hospital course with regards to his pain that has been manageable and he was consulted on by GI services who suggest that his acute on chronic pancreatitis is caused by alcohol use. He has tolerated a low fat diet and is able to be discharged today in good condition with orders to stop drinking alcohol and to follow up with GI services in 4-6 weeks, with an EGD to be considered at that time. In addition he has had persistently elevated BP's with the diastolic pressures remaining in the low 100s. As he was persistently elevated, he was started on Losartan 25 mg po daily. In addition
--- NOTE | 2021-12-08 07:45 | PM.DS ---
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 tolerating diet follow up with GI in 4-6 weeks for EGD. (2) Pancreatitis: Code(s): K85.90 - Acute pancreatitis without necrosis or infection, unspecified Status: Acute Assessment and Plan: Abdominal CT shows a normal pancreas consistent with acute on chronic pancreatitis, distended gallbladder Abdominal ultrasound shows gallbladder sludge and distension Continue IV fluids Clear liquid diet Continue pain control. Lipase was 16 GI consulted GI wants to follow up in 4-6 weeks as outpatient. (3) Dehydration: Code(s): E86.0 - Dehydration Status: Resolved Assessment and Plan: Continue fluids BUN/Cr are stable at 8/0.60 Continue to trend Resolved and tolerating a low fat/low residue diet. (4) Hyponatremia: Code(s): E87.1 - Hypo-osmolality and hyponatremia Status: Resolved Assessment and Plan: Resolved today with sodium of 147. (5) Hyperglycemia: Code(s): R73.9 - Hyperglycemia, unspecified Status: Resolved Assessment and Plan: Glucose 94 A1c 5.5 Seems stable (6) Elevated blood pressure reading: Code(s): R03.0 - Elevated blood-pressure reading, without diagnosis of hypertension Status: Acute Assessment and Plan: Blood pressure 126/85 currently however was 155/102 this morning No home medications noted Continue to trend blood pressure Pt. has had intermittent elevated blood pressures with diastolic in the 90s-100s and persisting. Will initiate Losartan 25 mg po. Trend blood pressure Adjust therapy as indicated DS: Summary Hospital Course Reason for hospitalization: Abdominal Pain Hospital Course: This 41 year old male patient with significant PMH of Pancreatitis that is chronic, presented to the ER on 12/05/2021 with complaints of haivng abdominal pain after drinking three shots of Tequila the night before. He described it as a squeezing pain and ER workup was significant for a WBC count of 13.6, Sodium of 126, Total bilirubin of 1.6 and lipase of 226. CT of abdomen and pelvis was consistent with sludge found in the Gall Bladder and also with findings of Chronic Pancreatitis. Subsequent Abdominal US was consistent with gall bladder sludge without acute cholecystitis. He has had a favorable hospital course with regards to his pain that has been manageable and he was consulted on by GI services who suggest that his acute on chronic pancreatitis is caused by alcohol use. He has tolerated a low fat diet and is able to be discharged today in good condition with orders to stop drinking alcohol and to follow up with GI services in 4-6 weeks, with an EGD to be considered at that time. In addition he has had persistently elevated BP's with the diastolic pressures remaining in the low 100s. As he was persistently elevated, he was started on Losartan 25 mg po daily. In addition patient's triglycerides were noted to be 440. He will be started on fish oil and atorvastatin at home.Pt. has tolerated all treatments well and is stable for discharge at this time. Status at Discharge Functional status at discharge: independent ambulation Time Spent with Patient Time attestation: Total time spent providing and/or coordinating discharge services: Time spent: Greater than 30 minutes Exam Narrative: General: Well-developed male appearing in moderate pain sitting
[2021-12-08] MEDS: LOSARTAN POTASSIUM 25 MG TABLET PO (08:33)
[2021-12-08] MEDS: ATORVASTATIN 20 MG TABLET PO (08:33)
[2021-12-08] MEDS: HYDROcodone/acetaminophen (*CRX) 7.5-325 MG TABLET 1 TAB PO ×4 (10:02→23:45)
[2021-12-08 10:45] VITALS: BP 160/104
[2021-12-08] MEDS: OMEGA 3 POLYUNSAT FATTY ACIDS 1 GM CAP PO (11:52)
--- NOTE | 2021-12-08 12:32 | WPDGIPROGNO ---
Progress Note: A&P Assessment and Plan (1) Acute on chronic pancreatitis: Code(s): K85.90 - Acute pancreatitis without necrosis or infection, unspecified; K86.1 - Other chronic pancreatitis Status: Acute Assessment and Plan: tolerating diet and comfortable he can go home low fat diet stop drinking alcohol altogether (2) Alcohol abuse: Code(s): F10.10 - Alcohol abuse, uncomplicated Status: Acute (3) Hyponatremia: Code(s): E87.1 - Hypo-osmolality and hyponatremia Status: Resolved Subjective Date/time seen: 12/08/21 12:32 Interval history: doing better, only minimal abdominal pain and no nausea, tolerating diet Review of Systems Review of Systems: All systems reviewed & are unremarkable except as noted in HPI and below Exam Const: General: comfortable and no acute distress HENMT: General nose exam: Normal nares present Eyes: General: appearance normal, both eyes and all related structures Neck: Neck: no JVD Resp: Auscultation: clear to auscultation bilaterally Cardio: Rate: regular rate Rhythm: regular rhythm GI: Inspection: non-distended GI Palp: Yes Soft to palpation Skin: General skin exam: normal color Neuro: General: gait normal Speech: normal speech Extrem: General: normal to inspection Psych: Mental Status: mental status grossly normal Objective Data Vital Signs Vital Signs: Vital Signs - 24 hr 12/07/21 14:00 12/07/21 21:48 12/08/21 05:39 Temperature 97.6 F 97.9 F 97.9 F Pulse Rate 96 118 H 78 Respiratory Rate 16 18 16 Blood Pressure 160/110 H 155/88 H 145/100 H Pulse Oximetry 98 98 99 Oxygen Delivery 12/07/21 19:55 12/08/21 10:45 Temperature Pulse Rate Respiratory Rate Blood Pressure 160/104 H Pulse Oximetry 98 Oxygen Delivery Room Air Intake/Output Intake/Output: Intake & Output 12/05/21 12/06/21 12/07/21 12/08/21 23:59 23:59 23:59 23:59 Intake Total 1999 5350 6242 2120 Output Total 0 1600 Balance 1999 3750 6242 2120 Meds/Results Medications: Active Medications Generic Name Dose Route Start Last Admin Trade Name Freq PRN Reason Stop Dose Admin Hydrocodone Bitart/Acetaminophen 1 tab 12/08/21 09:51 12/08/21 10:02 Hydrocodone/Acetaminophen (*Crx) 7.5-325 Mg Tablet PO 1 tab Q4H PRN Administration Pain Rated 7-10 Atorvastatin Calcium 20 mg 12/08/21 09:00 12/08/21 08:33 Atorvastatin 20 Mg Tablet PO 20 mg DAILY DEBBIE Administration Fish Oil 1 gm 12/08/21 11:00 12/08/21 11:52 [place] 3 Polyunsat Fatty Acids 1 Gm Cap PO 1 gm QAM DEBBIE Administration Hydralazine HCl 10 mg 12/07/21 15:32 12/07/21 16:12 Hydralazine Hcl 20 Mg/Ml Vial IV PUSH 10 mg Q8H PRN Administration Blood Pressure - High Sodium Chloride 1,000 mls @ 150 mls/hr 12/05/21 15:20 12/08/21 11:52 Normal Saline Iv IV CONT 150 mls/hr .Q6H40M DEBBIE Administration Losartan Potassium 25 mg 12/08/21 09:00 12/08/21 08:33 Losartan Potassium 25 Mg Tablet PO 25 mg DAILY DEBBIE Administration Ondansetron HCl 4 mg 12/05/21 15:20 12/05/21 17:29 Ondansetron Inj 4 Mg/2 Ml Vial IV PUSH 4 mg Q4H PRN Administration Nausea Radiology Results: ITS Impressions Abdomen/Pelvis CT 12/05/21 13:43 IMPRESSION: 1. Abnormal pancreas, consistent with acute and/or chronic pancreatitis. 2. Distended gallbladder, which may be secondary to fasting or less likely acute cholecystitis. Abdomen Ultrasound 12/05/21 16:27 IMPRESSION: 1. Gallbladder sludge. Gallbladder distention is likely secondary to fasting. No specific evidence of acute cholecystitis. Labs Labs: Laboratory Results - last 24 hr 12/08/21 12/08/21 05:15 05:15 WBC 8.7 RBC 4.28 L Hgb 12.9 L Hct 37.8 L MCV 88.3 MCH 30.1 MCHC 34.1 RDW 12.7 Plt Count 391 H MPV 9.0 Immature Gran % (Auto) 0.2 Neut % (Auto) 64.7 Lymph % (Auto) 24.1 [place] % (Auto) 8.4 Eos % (Aut
[2021-12-08 14:38] VITALS: BP 146/96; PULSE 84; RESP 18; TEMP 37.3; O2SAT 97
--- NOTE | 2021-12-08 14:44 | PM.IMPN ---
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 - Follow up with GI as outpatient for possible EGD in next few weeks. - Low fat diet. (2) Pancreatitis: Code(s): K85.90 - Acute pancreatitis without necrosis or infection, unspecified Status: Acute Assessment and Plan: - Etiology likely alcohol abuse and Hypertriglyceridemia. - Low fat diet, fish oil and statins are ordered. - LFT's normal. - Stop ETOH use. - Follow up with PCP and GI as outpatient. - Pain meds as prescribed and in chart. (3) Dehydration: Code(s): E86.0 - Dehydration Status: Resolved Assessment and Plan: Resolved (4) Hyponatremia: Code(s): E87.1 - Hypo-osmolality and hyponatremia Status: Resolved Assessment and Plan: Resolved (5) Hyperglycemia: Code(s): R73.9 - Hyperglycemia, unspecified Status: Resolved Assessment and Plan: Resolved (6) Elevated blood pressure reading: Code(s): R03.0 - Elevated blood-pressure reading, without diagnosis of hypertension Status: Acute Assessment and Plan: - Losartan 25 mg was initiated as patient's DBP was consistently elevated >100. - PRN Hydralazine ordered with parameters. - Discharge home on Losartan and follow up with PCP. (7) Hypertriglyceridemia: Code(s): E78.1 - Pure hyperglyceridemia Status: Acute Assessment and Plan: - Initiated Statin and Fish oil. - Follow up with PCP. - Consider Fenofibrate - Low fat and low cholesterol diet. Time Spent With Patient Time with patient: 15 - 25 minutes Subjective Date/time seen: 12/08/21 0840 This pt. was examined at the bedside today in interval assessment. He is found to still have a moderate pain after eating requiring dosing of pain medications. I am told by RN that he has been receiving his dilaudid regularly. In addition, his BP has remained elevated. He just tolerated a low fat diet and has been cleared by GI, however, new medications are being trialed for his BP with Diastolic >100 prior to discharge and he is being trialed off of Dilaudid first before discharge. He has no CP, dyspnea, N/V/D/headache, lightheadedness, dizziness or any other complaints at this time. Review of Systems Review of Systems: All systems reviewed & are unremarkable except as noted in HPI and below Exam Const: General: uncomfortable HENMT: General nose exam: Normal nares present Mouth: Yes moist mucous membranes Eyes: General: appearance normal, both eyes and all related structures Sclera: sclerae normal Pupils: Equal, round and reactive pupils present EOM: EOMs intact bilaterally Neck: Neck: supple and no JVD Resp: Effort & Inspection: normal respiratory effort Auscultation: clear to auscultation bilaterally Cardio: Rate: regular rate Rhythm: regular rhythm Heart sounds: no gallops, no murmurs and no rubs GI: Inspection: non-distended GI Palp: Yes Soft to palpation and Yes Tenderness to palpation present (GI) (epigastric) Auscultation: normal bowel sounds Skin: General skin exam: normal color, no rashes or lesions noted and no erythema Lesions: no lesions noted Rashes: no rashes noted Wounds: no wounds Neuro: General: gait normal Speech: normal speech Motor exam (neuro): 5/5 motor strength present throughout and Normal motor muscle tone present throughout Sensory Exam: normal sensation Extrem: General: normal to inspection, no edema and no pedal edema Psych: Mental Status: mental status grossly normal Affect: normal affect Objective Data Vital Signs Vital Signs: Vital Signs - 24 hr 12/07/21 21:48 12/08/21 05:39 12/07/21 19:55 Temperature 97.9 F 97.9 F Pulse Rate 118 H 78 Respiratory Rate 18 16 Blood Pressure 155/88 H 145/100 H Pulse Oximetry 98 99 98
[2021-12-08] MEDS: hydrALAZINE HCL 20 MG/ML VIAL 10 MG IV PUSH (14:50)
[2021-12-08 17:32] VITALS: BP 147/92; PULSE 95; RESP 18; TEMP 36.8; O2SAT 97
[2021-12-08 19:56] VITALS: BP 147/87; PULSE 94; RESP 18; TEMP 36.2; O2SAT 98
[2021-12-08] MEDS: ONDANSETRON INJ 4 MG/2 ML VIAL IV PUSH (23:47)
[2021-12-09 04:25] VITALS: BP 123/84; PULSE 83; RESP 16; TEMP 36.6; O2SAT 98
[2021-12-09 06:08] LABS: Basophils Percent Auto 0.4 % (0.2-1.2); Eosinophils Absolute Auto 0.3 K/mm3 (0-0.3); Eosinophils Percent Auto 2.9 % (0-4.4); Hematocrit 40.6 % (42.0-52.0); Hemoglobin 13.8 g/dL (14.0-18.0); Immature Granulocyte Absolute 0.03 K/mm3 (0.00-0.031); Immature Granulocyte Percent A 0.3 % (0-0.5); Lymphocytes Absolute Auto 2.71 K/mm3 (0.9-3.2); Lymphocytes Percent Auto 30.1 % (18.3-44.2); Mean Corpuscular Hemoglobin 30.2 pg (26-34); Mean Corpuscular Volume 88.8 fl (80-100); Monocytes Absolute Auto 0.8 K/mm3 (0.1-0.6); Monocytes Percent Auto 8.8 % (2.6-8.5); Neutrophils Absolute Auto 5.2 K/mm3 (1.3-6.7); Neutrophils Percent Auto 57.5 % (45.5-73.1); Platelet Count Result 420 k/mm3 (150-375); Red Blood Count 4.57 M/mm3 (4.6-6.20); Red Cell Distribution Width 12.8 % (11.5-14.5)
[2021-12-09 06:16] LABS: Alanine Aminotransferase 27 U/L (6-50); Albumin Level 4.2 g/dL (3.5-5.1); Alkaline Phosphatase 115 U/L (38-126); Anion Gap 13 mmol/L (8-16); Aspartate Amino Transferase 36 U/L (17-59); Bilirubin,Total 0.4 mg/dL (0.2-1.3); Blood Urea Nitrogen 9 mg/dL (9-20); Calcium 9.2 mg/dL (8.4-10.2); Carbon Dioxide 23 mmol/L (22-30); Chloride 101 mmol/L (98-107); Estimated CRCL calculation 109 ml/min; Estimated Glomerular Filt Rate > 60; Glucose 109 mg/dL (65-110); Sodium 137 mmol/L (137-145)
[2021-12-09 06:36] LABS: Lipase < 10 U/L (23-300)
[2021-12-09] MEDS: LOSARTAN POTASSIUM 25 MG TABLET PO (08:17)
[2021-12-09] MEDS: ATORVASTATIN 20 MG TABLET PO (08:17)
[2021-12-09] MEDS: OMEGA 3 POLYUNSAT FATTY ACIDS 1 GM CAP PO (08:17)
--- NOTE | 2021-12-09 08:27 | PM.IMPN ---
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 - Follow up with GI as outpatient for possible EGD in next few weeks. - Low fat diet. (2) Pancreatitis: Code(s): K85.90 - Acute pancreatitis without necrosis or infection, unspecified Status: Acute Assessment and Plan: - Etiology likely alcohol abuse and Hypertriglyceridemia. - Low fat diet, fish oil and statins are ordered. - LFT's normal. - Stop ETOH use. - Follow up with PCP and GI as outpatient. - Pain meds as prescribed and in chart. (3) Dehydration: Code(s): E86.0 - Dehydration Status: Resolved Assessment and Plan: Resolved (4) Hyponatremia: Code(s): E87.1 - Hypo-osmolality and hyponatremia Status: Resolved Assessment and Plan: Resolved (5) Hyperglycemia: Code(s): R73.9 - Hyperglycemia, unspecified Status: Resolved Assessment and Plan: Resolved (6) Elevated blood pressure reading: Code(s): R03.0 - Elevated blood-pressure reading, without diagnosis of hypertension Status: Acute Assessment and Plan: - Losartan 25 mg was initiated as patient's DBP was consistently elevated >100. - PRN Hydralazine ordered with parameters. - Discharge home on Losartan and follow up with PCP. (7) Hypertriglyceridemia: Code(s): E78.1 - Pure hyperglyceridemia Status: Acute Assessment and Plan: - Initiated Statin and Fish oil. - Follow up with PCP. - Consider Fenofibrate - Low fat and low cholesterol diet. Subjective Date/time seen: 12/09/21 08:27 Objective Data Vital Signs Vital Signs: Vital Signs - 24 hr 12/08/21 10:45 12/08/21 14:38 12/08/21 17:32 Temperature 99.2 F 98.2 F Pulse Rate 84 95 Respiratory Rate 18 18 Blood Pressure 160/104 H 146/96 H 147/92 H Pulse Oximetry 97 97 12/08/21 19:56 12/09/21 04:25 Temperature 97.1 F L 97.8 F Pulse Rate 94 83 Respiratory Rate 18 16 Blood Pressure 147/87 H 123/84 Pulse Oximetry 98 98 Intake/Output Intake/Output: Intake & Output 12/06/21 12/07/21 12/08/21 12/09/21 23:59 23:59 23:59 23:59 Intake Total 5350 6242 4880 500 Output Total 1600 Balance 3750 6242 4880 500 Meds/Results Medications: Active Medications Generic Name Dose Route Start Last Admin Trade Name Freq PRN Reason Stop Dose Admin Hydrocodone Bitart/Acetaminophen 1 tab 12/08/21 09:51 12/08/21 23:45 Hydrocodone/Acetaminophen (*Crx) 7.5-325 Mg Tablet PO 1 tab Q4H PRN Administration Pain Rated 7-10 Atorvastatin Calcium 20 mg 12/08/21 09:00 12/09/21 08:17 Atorvastatin 20 Mg Tablet PO 20 mg DAILY DEBBIE Administration Fish Oil 1 gm 12/08/21 11:00 12/09/21 08:17 [place] 3 Polyunsat Fatty Acids 1 Gm Cap PO 1 gm QAM DEBBIE Administration Hydralazine HCl 10 mg 12/07/21 15:32 12/08/21 14:50 Hydralazine Hcl 20 Mg/Ml Vial IV PUSH 10 mg Q8H PRN Administration Blood Pressure - High Losartan Potassium 25 mg 12/08/21 09:00 12/09/21 08:17 Losartan Potassium 25 Mg Tablet PO 25 mg DAILY DEBBIE Administration Ondansetron HCl 4 mg 12/05/21 15:20 12/08/21 23:47 Ondansetron Inj 4 Mg/2 Ml Vial IV PUSH 4 mg Q4H PRN Administration Nausea Radiology Results: ITS Impressions Abdomen/Pelvis CT 12/05/21 13:43 IMPRESSION: 1. Abnormal pancreas, consistent with acute and/or chronic pancreatitis. 2. Distended gallbladder, which may be secondary to fasting or less likely acute cholecystitis. Abdomen Ultrasound 12/05/21 16:27 IMPRESSION: 1. Gallbladder sludge. Gallbladder distention is likely secondary to fasting. No specific evidence of acute cholecystitis. Labs Labs: Laboratory Results - last 24 hr 12/09/21 12/09/21 05:17 05:18 WBC 9.0 RBC 4.57 L Hgb 13.8
--- NOTE | 2021-12-09 08:36 | PM.DS ---
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 Status: Acute (2) Pancreatitis: Code(s): K85.90 - Acute pancreatitis without necrosis or infection, unspecified Status: Acute (3) Dehydration: Code(s): E86.0 - Dehydration Status: Resolved (4) Hyponatremia: Code(s): E87.1 - Hypo-osmolality and hyponatremia Status: Resolved (5) Hyperglycemia: Code(s): R73.9 - Hyperglycemia, unspecified Status: Resolved (6) Elevated blood pressure reading: Code(s): R03.0 - Elevated blood-pressure reading, without diagnosis of hypertension Status: Acute (7) Hypertriglyceridemia: Code(s): E78.1 - Pure hyperglyceridemia Status: Acute DS: Summary Hospital Course Hospital Course: 41-year-old male, primarily Latvian-speaking, presented to the emergency department via private vehicle from home for evaluation of abdominal pain. He reports a pretty sudden onset of upper abdominal pain last evening which seems to be more situated in the epigastric and left upper quadrant. The pain has been pretty consistent since the onset however seems to come and go in waves of intensity. He has difficulties describing the pain but does indicate that frequently it feels like a severe, squeezing pain. It does not radiate and he has not noticed any significant aggravating or alleviating factors. Ibuprofen has not helped much. Associated symptoms include nausea, multiple episodes of emesis, and sweats. Aside from elevated blood pressures, his vital signs were stable on arrival to the ER. Pertinent labs include a white blood cell count of 13.6, sodium 126, potassium 3.4, chloride 92, carbon dioxide 25, total bilirubin 1.6, AST 33, ALT 40, alkaline phosphatase 165, lipase 226. CT of the abdomen and pelvis showed findings consistent with acute and/or chronic pancreatitis and a distended gallbladder. Subsequent abdominal ultrasound showed gallbladder sludge and distension though no specific evidence of acute cholecystitis. He is being admitted in this setting for further treatment and evaluation. He had a similar episode several years ago, perhaps pancreatitis but he cannot recall. He had 3 shots of Tequila the night before his symptoms started and he is wondering if that may be the precipitating etiology; he is not a regular drinker. At the time my evaluation he is feeling a bit better after receiving dilaudid but he has pretty significant pain. He denies fever, chest pain, shortness of breath, hematemesis, diarrhea, steatorrhea, melena, and hematochezia. He also denies abdominal distension, bloating, belching, epigastric pain, and history of ulcers. The patient presented to the ER today for evaluation of sudden onset of epigastric and left upper quadrant pain which started last evening associated with nausea and multiple episodes of emesis. CT of the abdomen and pelvis shows findings consistent with acute and/or chronic pancreatitis and he is being admitted for supportive care including bowel rest, IV fluid rehydration, and pain control. Precipitating etiology is not entirely clear, gallbladder sludge was noted on abdominal ultrasound though no specific evidence to suggest acute cholecystitis. May be related to the Tequila he had the evening before though he does not drink in significant quantities. Lipase was normal and will be monitored. Check triglyceride level. GI was consulted. Suspected pancreatitis was secondary to alcohol abuse. Diet was advanced, patient's symptoms resolved. He is to follow-up with GI for an EGD outpatient in the next 4-6 weeks and avoid alcohol. Time Spent with Patient Time attestation: Total time spent providing and/or coordinating discharge services: DS: Data Data Completed and Pending Labs on day of discha
[2021-12-09 13:50] LABS: Osmolality, Urine 413 mOsm/kg (50-1200)
[2021-12-09 14:00] VITALS: BP 132/94; PULSE 87; RESP 20; TEMP 36.6; O2SAT 97
== END 2021-12-09 15:30 | disposition home or self-care (01) | DRG 282 ==
LOC: ANHED 13:52 → ANH3MED 16:26
PROVIDERS: Chiropractor; Emergency Medicine; Nurse Practitioner; Nurse Practitioner Adult Health; Physician Assistant; Admitting Provider Family Medicine; Emergency Provider Emergency Medicine; Visit Provider Student in an Organized Health Care Education/Training Program
DX: K85.20 Alcohol induced acute pancreatitis without necrosis or infection (principal); E78.1 Pure hyperglyceridemia; K86.1 Other chronic pancreatitis; E86.0 Dehydration; K82.8 Other specified diseases of gallbladder; R03.0 Elevated blood-pressure reading, without diagnosis of hypertension; F10.10 Alcohol abuse, uncomplicated
CPT/HCPCS: 36415; 74177; 76705; 80048; 80053; 81001; 82150; 82570; 83036; 83690; 83735; 83930; 83935; 84300; 84443; 84478; 85025; 85027; 96361; 96365; 96374; 96375; 96376; 99285; A9270; G0378; J0131; J0360; J1170; J2405; J3480; J7030; Q9967

== ENCOUNTER 2022-01-17 09:50 | Emergency (ER) | payer MEDICAID, SELFPAY ==
--- NOTE | ~2022-01-17 | XR_ITS ---
EXAMINATION: XR forearm LT 2V DATE: 01/17/2022 10:16 INDICATION: Laceration to the anterior left forearm TECHNIQUE: AP an lateral views of the left forearm were obtained. COMPARISON: none FINDINGS: Bone alignment is normal. No fracture. Joint spaces are normal. Linear soft tissue lucency consistent with a laceration at the volar aspect of the proximal left forearm. No radiopaque foreign bodies. IMPRESSION: 1. No osseous abnormality or radiopaque foreign body. Reviewed, dictated and finalized at location B.
[2022-01-17 09:55] VITALS: BP 159/94; PULSE 86; RESP 16; TEMP 36.6; O2SAT 99
[2022-01-17] MEDS: TETANUS,DIPHTHERIA,AC PERTUSSIS ADULT (0.5 ML) BOOSTRIX IM (10:49)
--- NOTE | 2022-01-17 11:25 | ED.WOUNDLAC ---
HPI - Wound/Laceration General Chief Complaint: Wound/Laceration <Kay Bocanegra PA-C - Last Filed: 01/17/22 12:19> Stated Complaint: left arm lac <MAT Jennings Last Filed: 01/17/22 12:19> Time Seen by Provider: 01/17/22 10:05 <MAT Jennings Last Filed: 01/17/22 12:19> Source: patient <MAT Jennings Last Filed: 01/17/22 12:19> Mode of arrival: ambulatory <MAT Jennings Last Filed: 01/17/22 12:19> Limitations: no limitations <MAT Jennings Last Filed: 01/17/22 12:19> History of Present Illness HPI narrative: Patient is a 41-year-old male who presents the ED with report of a laceration to his left medial ventral forearm. 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 No other injuries. Bleeding controlled by the time of my evaluation. Tetanus status unknown. <MAT Jennings Last Filed: 01/17/22 12:19> Related Data Allergies/Adverse Reactions: Allergies Allergy/AdvReac Type Severity Reaction Status Date / Time No Known Allergies Allergy Verified 01/17/22 09:57 <MAT Jennings Last Filed: 01/17/22 12:19> Review of Systems Review of Systems: CONSTITUTIONAL: Denies fever, chills, or sweats. SKIN: Laceration to left medial ventral forearm. MUSCULOSKELETAL: Denies joint pain. NEUROLOGIC: Denies tingling, numbness, or weakness. <MAT Jennings Last Filed: 01/17/22 12:19> All systems reviewed & are unremarkable except as noted in HPI and below <MAT Jennings Last Filed: 01/17/22 12:19> PMF Past Medical History Medical History: Medical History Acute on chronic pancreatitis Alcohol abuse Pancreatitis <Kay Bocanegra PA-C - Last Filed: 01/17/22 12:19> Surgical History Surgical History: Surgical History History of appendectomy <Kay Bocanegra PA-C - Last Filed: 01/17/22 12:19> Family History Family History: Family History Grandparent Prostate carcinoma <Kay Bocanegra PA-C - Last Filed: 01/17/22 12:19> Social History Social History: Social History Social History: Surrogate medical decision maker: Ellie Riggs, spouse. Code status: Full code. Smoking status: Never smoker Alcohol intake: current Drinks per week: 3 Substance use: never Additional living arrangements comments: The patient lives with his family in [place]. Additional occupation/education comments: boiler installer. Spiritual care concerns: No <Kay Bocanegra PA-C - Last Filed: 01/17/22 12:19> Exam Narrative: GENERAL: Well appearing, well-nourished, non-toxic, in no acute distress. HEAD: Normocephalic, atraumatic. NECK: Supple. No adenopathy, no masses. RESPIRATORY: Airway patent, respirations nonlabored. CARDIOVASCULAR: Regular rate and rhythm without murmurs, rubs, or gallops. Radial pulses 2+ and equal bilaterally. MUSCULOSKELETAL: Moves all extremities. Strength/ROM intact without gross deformities. Full ROM of L elbow/wrist. SKIN: Warm, dry, normal color. No rashes. Approx. 4 cm slightly gaping laceration to left medial volar proximal forearm - antecubital region. Bleeding controlled. NEURO: A&O X3. Speech clear. Cranial nerves II-XII grossly intact. Steady gait. No ataxic movements. PSYCHIATRIC: Appropriate mood and affect. Normal interaction. <Kay Bocanegra PA-C - Last Filed: 01/17/22 12:19> Course TRUST VAULT CLERK/PA Physician Supervision For this patient encounter, I reviewed the TRUST VAULT CLERK or PA documentation, treatment plan, and medical decision making. I was available for consultation as needed.
== END 2022-01-17 11:51 | disposition home or self-care (01) ==
PROVIDERS: Emergency Provider Emergency Medicine
DX: S51.812A Laceration without foreign body of left forearm, initial encounter (principal); K86.1 Other chronic pancreatitis; Z23 Encounter for immunization; W31.2XXA Contact with powered woodworking and forming machines, initial encounter
CPT/HCPCS: 12002; 73090; 90471; 90715; 99283